=== PATIENT | male | born 1980 | race Caucasian/White ===

== ENCOUNTER → 2016-07-27 | Outpatient (CLI) | payer OTHER ==
[2016-07-27 10:33] LABS: EOS # 0.1 K/mm3 (0.0-0.50); EOS % 1.2 % (0.0-3.0); LARGE UNSTAINED CELL # 0.1 K/mm3 (0.0-0.4); LYMPH # 1.6 K/mm3 (1.5-4.5); LYMPH % 32.5 % (24.0-44.0); MEAN CORPUSCULAR HEMOGLOBIN 31.8 pg (27.0-33.0); MEAN CORPUSCULAR HGB CONC 34.7 g/dl (32.0-36.5); MEAN CORPUSCULAR VOLUME 91.8 fl (80.0-96.0); MONO # 0.4 K/mm3 (0.0-0.8); MONO % 7.4 % (0.0-5.0); NEUTROPHILS # 2.7 K/mm3 (1.8-7.7); NEUTROPHILS % 55.8 % (36.0-66.0); PLATELET COUNT, AUTOMATED 177 k/mm3 (150-450); RED CELL DISTRIBUTION WIDTH 12.7 % (11.5-14.5); WHITE BLOOD COUNT 4.8 K/mm3 (4.0-10.0)
[2016-07-27 11:03] LABS: ALT/SGPT 78 U/L (12-78); ANION GAP 4 MEQ/L (8-16); AST/SGOT 31 U/L (15-37); BLOOD UREA NITROGEN 16 MG/DL (7-18); CARBON DIOXIDE LEVEL 34 MEQ/L (21-32); CHLORIDE LEVEL 105 MEQ/L (98-107); CHOLESTEROL LEVEL 195 MG/DL (<200); CREATININE FOR GFR 0.92 MG/DL (0.70-1.30); FREE T4 0.87 NG/DL (0.76-1.46); GLOMERULAR FILTRATION RATE > 60.0 (>60); GLUCOSE, FASTING 97 MG/DL (70-105); POTASSIUM SERUM 4.5 MEQ/L (3.5-5.1); SODIUM LEVEL 143 MEQ/L (136-145); TRIGLYCERIDES LEVEL 156 MG/DL (<150)
== END ==
LOC: M LAB 10:04
PROVIDERS: ATTEND Family Medicine
DX: Z13.220 Encounter for screening for lipoid disorders (principal); Z13.1 Encounter for screening for diabetes mellitus; Z13.0 Encounter for screening for diseases of the blood and blood-forming organs and certain disorders involving the immune mechanism; Z13.29 Encounter for screening for other suspected endocrine disorder

== ENCOUNTER → 2016-10-04 | Outpatient (CLI) | payer OTHER | LOC: M RAD 10:46 | PROVIDERS: ATTEND Psychiatry & Neurology Neurology | DX: Z53.8 Procedure and treatment not carried out for other reasons (principal) ==

== ENCOUNTER → 2016-10-14 | Outpatient (CLI) | payer OTHER ==
--- NOTE | 2016-10-14 11:51 | REP ---
MRI BRAIN WITHOUT AND WITH CONTRAST: 10/14/2016 CLINICAL HISTORY: Episodic tension type headaches, not intractable. 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 TECHNIQUE: Sagittal T1 with axial T1, T2 FLAIR, diffusion weighted images and ADC mapping sequences with coronal and axial T1 sequences. After infusion of 20 mL as of ProHance. FINDINGS: The axial images show ventricles midline, symmetric and without dilatation or displacement. Basal ganglia is symmetric and grossly normal. White matter tracts were intact. No significant T2 or FLAIR hyperintense foci in either hemisphere. Cortical stripe preserved without atrophy or masses. There is no intracranial hemorrhage, extra-axial fluid collection, mass or mass effect. No vascular territory infarct. Diffusion weighted images and ADC mapping sequences show no evidence of acute ischemia. The sagittal images show the corpus callosum, optic chiasm and pituitary intact. There is no cerebellar or tonsillar ectopia. After contrast administration, there was no abnormal gyriform enhancement, enhancing mass, abnormal meningeal enhancement or vascular lesion. Those other structures of the face and scalp visible as well as orbits grossly intact. IMPRESSION: 1. Normal MRI brain. No intra or extra-axial hemorrhage, mass or edema. No white matter tract abnormality. 2. Sinuses and mastoids clear. Seventh/eighth cranial nerve complex is intact. No extra-axial fluid collection or other significant finding. Negative exam. Signed by Bradford Rolon MD 10/14/2016 01:33 P
== END ==
LOC: M RAD 08:49
PROVIDERS: ATTEND Psychiatry & Neurology Neurology
DX: H47.323 Drusen of optic disc, bilateral (principal); G44.219 Episodic tension-type headache, not intractable
CPT/HCPCS: 70553; A9576

== ENCOUNTER → 2016-10-18 | Outpatient (CLI) | payer OTHER ==
--- NOTE | 2016-10-18 12:49 | REP ---
MRI ORBITS WITHOUT AND WITH CONTRAST: 10/18/2016. Comparison: MRI brain 10/14/2016. Clinical history: Drusen of optic disc, bilaterally. Technique: Axial T2 whole brain with small field of view axial T1 and T2 images through the orbits, and after infusion of ProHance 20 ml, thin section axial sagittal and coronal images through the orbits provided. Coronal T2 fat suppressed images through the orbits and fat suppressed T1 sequence provided. Findings: The MRI whole brain images are unchanged. The ventricular system, basal ganglia, white matter tracts and the cortical stripe preserved. Basal ganglia intact. The posterior fossa intact. Seventh/eighth cranial nerve complexes and mastoids preserved. Visualized sinuses were clear. The globes are grossly intact. I see no plaque or visible lesion along the posterior margins of the sclera or optic nerve disc location. No abnormal enhancement in this region. Slight thickening of the optic nerve sheath with increased signal on the T2 but no enhancement evident on fat suppressed T1 sequence. The intraconal fat and extraocular muscles symmetric and grossly normal without signal abnormality. The lacrimal apparatus grossly symmetric and unremarkable. No proptosis. Conjugate gaze is noted on all sequences. Corpus callosum, optic chiasm and pituitary were unremarkable. Impression: 1. No evidence for signal abnormality or plaque-like elevation in the sclera posteriorly nor abnormal enhancement of the intraconal structures. The extraocular muscles are symmetric and normal. 2. Visualized sinuses without air-fluid levels and only a few minor areas of mucosal thickening in some of the ethmoid air cells. Slight thickening of the optic nerve sheath without enhancement. 3. No other significant finding. Signed by Bradford Rolon MD 10/18/2016 02:54 P
== END ==
LOC: M RAD 08:56
PROVIDERS: ATTEND Psychiatry & Neurology Neurology
DX: H47.323 Drusen of optic disc, bilateral (principal)
CPT/HCPCS: 70543; A9576

== ENCOUNTER → 2017-08-10 | Outpatient (CLI) | payer OTHER | LOC: M WUC 15:41 | DX: M54.31 Sciatica, right side (principal); M51.36 Other intervertebral disc degeneration, lumbar region | CPT/HCPCS: 72110 ==

== ENCOUNTER → 2017-11-13 | Outpatient (CLI) | payer OTHER ==
[2017-11-13 17:17] LABS: BASO # 0.1 10^3/uL (0.0-0.2); BASO % 0.9 % (0.0-1.0); EOS # 0.1 10^3/uL (0.0-0.50); EOS % 1.1 % (0.0-3.0); HEMOGLOBIN 14.6 g/dl (13.5-17.5); LYMPH % 36.4 % (24.0-44.0); MEAN CORPUSCULAR HEMOGLOBIN 31.3 pg (27.0-33.0); MEAN CORPUSCULAR HGB CONC 34.8 g/dl (32.0-36.5); MEAN CORPUSCULAR VOLUME 90.1 fl (80.0-96.0); MONO # 0.5 10^3/uL (0.0-0.8); MONO % 9.3 % (0.0-5.0); NEUTROPHILS # 2.8 10^3/uL (1.8-7.7); NEUTROPHILS % 52.3 % (36.0-66.0); PLATELET COUNT, AUTOMATED 191 10^3/uL (150-450); RED BLOOD COUNT 4.66 10^6/uL (4.30-6.10); RED CELL DISTRIBUTION WIDTH 12.4 % (11.5-14.5); WHITE BLOOD COUNT 5.4 10^3/uL (4.0-10.0)
[2017-11-13 17:59] LABS: ALBUMIN 4.3 GM/DL (3.2-5.2); ALBUMIN/GLOBULIN RATIO 1.26 (1.00-1.93); ALKALINE PHOSPHATASE 91 U/L (45-117); ALT/SGPT 64 U/L (12-78); ANION GAP 6 MEQ/L (8-16); AST/SGOT 38 U/L (7-37); BILIRUBIN,TOTAL 0.5 MG/DL (0.2-1.0); BLOOD UREA NITROGEN 13 MG/DL (7-18); CARBON DIOXIDE LEVEL 31 MEQ/L (21-32); CHLORIDE LEVEL 105 MEQ/L (98-107); CHOLESTEROL LEVEL 181 MG/DL (<200); CHOLESTEROL RISK RATIO 5.027 (<5); CREATININE FOR GFR 0.87 MG/DL (0.70-1.30); GLOMERULAR FILTRATION RATE > 60.0 (>60); GLUCOSE, FASTING 92 MG/DL (70-100); HDL CHOLESTEROL 36 MG/DL (>40); LDL CHOLESTEROL 105.6 MG/DL (<100); NON-HDL-C 145 MG/DL; POTASSIUM SERUM 3.9 MEQ/L (3.5-5.1); SODIUM LEVEL 142 MEQ/L (136-145); TOTAL PROTEIN 7.7 GM/DL (6.4-8.2); TRIGLYCERIDES LEVEL 197 MG/DL (<150)
[2017-11-14 10:59] LABS: CHLAMYDIA DNA AMPLIFICATION NEGATIVE (NEGATIVE); GC DNA AMPLIFICATION NEGATIVE (NEGATIVE)
[2017-11-14 12:19] LABS: HIV 1&2 SCREEN CENTAUR NEGATIVE (NEGATIVE)
== END ==
LOC: M LAB 16:34
DX: Z11.3 Encounter for screening for infections with a predominantly sexual mode of transmission (principal)

== ENCOUNTER → 2017-12-25 | Outpatient (CLI) | payer OTHER | LOC: M LAB 15:31 | DX: R94.6 Abnormal results of thyroid function studies (principal) | CPT/HCPCS: 84443 ==

== ENCOUNTER → 2018-04-01 | Outpatient (CLI) | payer OTHER ==
[2018-04-01 16:56] LABS: FREE T4 0.85 NG/DL (0.76-1.46)
== END ==
LOC: M LAB 16:00
DX: E03.9 Hypothyroidism, unspecified (principal)
CPT/HCPCS: 84443

== ENCOUNTER → 2020-04-20 | Outpatient (CLI) | payer OTHER ==
[2020-04-20 17:44] LABS: BASO # 0.1 10^3/uL (0.0-0.2); BASO % 1.2 % (0.0-1.0); EOS # 0.1 10^3/uL (0.0-0.5); EOS % 1.2 % (0.0-3.0); HEMOGLOBIN 15.1 g/dl (13.5-17.5); LYMPH # 2.2 10^3/uL (1.5-5.0); LYMPH % 36.2 % (24.0-44.0); MEAN CORPUSCULAR HEMOGLOBIN 31.4 pg (27.0-33.0); MEAN CORPUSCULAR HGB CONC 33.6 g/dl (32.0-36.5); MEAN CORPUSCULAR VOLUME 93.6 fl (80.0-96.0); MONO # 0.6 10^3/uL (0.0-0.8); NEUTROPHILS # 3.1 10^3/uL (1.5-8.5); NEUTROPHILS % 51.2 % (36.0-66.0); PLATELET COUNT, AUTOMATED 203 10^3/uL (150-450); RED BLOOD COUNT 4.81 10^6/uL (4.30-6.10)
== END ==
LOC: M LAB 17:08
PROVIDERS: ATTEND Family Medicine
DX: Z13.0 Encounter for screening for diseases of the blood and blood-forming organs and certain disorders involving the immune mechanism (principal); Z11.59 Encounter for screening for other viral diseases

== ENCOUNTER → 2020-05-09 | Outpatient (CLI) | payer SELFPAY | LOC: M LABSMTC 11:51 | PROVIDERS: ATTEND Pediatrics | DX: Z11.59 Encounter for screening for other viral diseases (principal) ==

== ENCOUNTER → 2023-09-30 | Outpatient (CLI) | payer OTHER ==
[2023-09-30 09:59] LABS: CHOLESTEROL RISK RATIO 3.74 (<5); HDL CHOLESTEROL 49.7 MG/DL (>40); LDL CHOLESTEROL 119.5 MG/DL (<100); NON-HDL-C 136.3 MG/DL; PERCENT SATURATION 30.1 % (19.7-50.0)
[2023-09-30 10:01] LABS: TOTAL 25(OH) VITAMIN D 26.2 NG/ML (20.0-100.0)
[2023-09-30 10:02] LABS: FERRITIN 249.4 NG/ML (10.5-307.3)
[2023-09-30 10:14] LABS: HEMOGLOBIN A1c 4.8 % (4.0-6.0)
[2023-10-02 13:17] LABS: TESTOSTERONE FREE (DIRECT) 14.9 pg/mL (6.8-21.5)
== END ==
LOC: M LAB 07:56
PROVIDERS: ATTEND Family Medicine
DX: E78.5 Hyperlipidemia, unspecified (principal); R53.83 Other fatigue; E55.9 Vitamin D deficiency, unspecified

== ENCOUNTER → 2024-01-15 | Outpatient (CLI) | payer BC ==
[~2024-01-15] MED LIST: PROHANCE 279.3MG/ML 15ML VIAL As Ordered ONE; PROHANCE 279.3MG/ML 5ML VIAL As Ordered ONE
== END ==
LOC: M RAD 06:41
PROVIDERS: ATTEND Orthopaedic Surgery
DX: M67.471 Ganglion, right ankle and foot (principal)
CPT/HCPCS: 73723; A9576